=== PATIENT | male | born 2000 | race Caucasian/White ===

== ENCOUNTER 2023-03-14 06:58 | Emergency (ER) | payer OTHER, SELFPAY ==
[2023-03-14 07:09] VITALS: BP 130/72; PULSE 75; RESP 18; TEMP 37.5; O2SAT 97; BMI 23.7
--- NOTE | 2023-03-14 07:27 | ED.GENADUL1 ---
HPI - General Adult General Chief complaint: Upper Respiratory Infection Stated complaint: Dysphagia Time Seen by Provider: 03/14/23 07:12 Source: patient Mode of arrival: walk-in Limitations: no limitations History of Present Illness HPI narrative: pain with swallowing due to sore throat and upper anterior lymph node swelling and discomfort. Started 03/10/23 and has slowly worsened. No fever or chills. No ear pain or nasal congestion. No known ill contacts. Nothing taken for these symptoms. Related Data Previous Rx's Medication Instructions Recorded amoxicillin 875 mg tablet 875 mg PO Q12H #20 tabs 03/14/23 Allergies Allergy/AdvReac Type Severity Reaction Status Date / Time No Known Drug Allergies Allergy Verified 03/14/23 07:09 PFS PFS Social History Smoking status: Former smoker Exam Narrative Exam Narrative: Nurses notes and vital signs reviewed and patient is not hypoxic. afebrile General: Well-appearing and in no apparent distress. Skin: Warm, dry, no pallor noted. No rash. Head: Normocephalic, atraumatic. Neck: Supple, non-tender. tender anterior upper cervical lymphadenopathy Eye: Pupils are equal, round and EOMI. No scleral icterus. Ears, Nose, Mouth, and Throat: TM are clear, no nasal mucosal hypertrophy. Oral mucosa is moist, moderate posterior oropharynx erythema with injection, uvula is mid-line Cardiovascular: Regular Rate and Rhythm without murmur, gallop or rub. Respiratory: No accessory muscle use or respiratory distress. Lungs are clear to auscultation, no wheezing, rales or rhonchi GI: Abdomen is soft, non-distended. Normal bowel sounds. No tenderness to palpation. No rebound, guarding, or rigidity noted. Neurological: A&O x4. No cranial nerve dysfunction observed. No truncal ataxia. Moves all extremities. Sensation intact. Psychiatric: Cooperative and interactive. Normal mood and affect. Constitutional Vital Signs - 24 hr 03/14/23 07:09 Temperature 99.5 F Pulse Rate [Monitor] 75 Respiratory Rate 18 Blood Pressure [Left Arm] 130/72 H Pulse Oximetry 97 Oxygen Delivery Method Room Air Course Vital Signs Vital signs: Vital Signs Temperature 99.5 F 03/14/23 07:09 Pulse Rate 75 03/14/23 07:09 Respiratory Rate 18 03/14/23 07:09 Blood Pressure 130/72 H 03/14/23 07:09 Pulse Oximetry 97 03/14/23 07:09 Oxygen Delivery Method Room Air 03/14/23 07:09 Temperature 99.5 F 03/14/23 07:09 Pulse Rate 75 03/14/23 07:09 Respiratory Rate 18 03/14/23 07:09 Blood Pressure 130/72 H 03/14/23 07:09 Pulse Oximetry 97 03/14/23 07:09 Oxygen Delivery Method Room Air 03/14/23 07:09 Medical Decision Making MDM Narrative Medical decision making narrative: exam consistent with bacterial pharyngitis. Strep screen obtained to satisfy MIPS. Patient prescribed amoxicillin and BMX solution and encouraged to see his PCP for follow up as needed or return to the ED if he worsens. Discharge Plan Discharge Chief Complaint: Upper Respiratory Infection Clinical Impression: Lymphadenopathy, anterior cervical, Pharyngitis Patient Disposition: Home, Self-Care Time of Disposition Decision: 07:23 Prescriptions / Home Meds: New amoxicillin 875 mg tablet 875 mg PO Q12H Qty: 20 0RF Instructions: Pharyngitis (ED), Lymphadenopathy (ED) Stand Alone Forms: Portal Instructions Referrals: Shaikh Miller MD [Primary Care Provider] - 1 week
[2023-03-14 07:35] LABS: Internal Control Within Normal Limits; Strep A Antigen Screen Negative
== END 2023-03-14 08:15 | disposition home or self-care (01) ==
PROVIDERS: Emergency Provider Emergency Medicine; PCP Internal Medicine
DX: J02.9 Acute pharyngitis, unspecified (principal); R59.0 Localized enlarged lymph nodes; Z87.891 Personal history of nicotine dependence
CPT/HCPCS: 87070; 87880; 99283